=== PATIENT | female | born 1975 | race Two or more races ===

== ENCOUNTER 2024-12-08 10:15 | Outpatient (CLI) | payer OTHER | END 2024-12-08 10:16 | disposition home or self-care (01) | LOC: SONOGRAMA 10:15 | PROVIDERS: ATTEND Pathology Anatomic Pathology & Clinical Pathology | DX: I88.8 Other nonspecific lymphadenitis (principal); N63.31 Unspecified lump in axillary tail of the right breast ==

== ENCOUNTER 2024-12-08 15:37 | Outpatient (CLI) | payer OTHER | END 2024-12-08 15:39 | disposition home or self-care (01) | LOC: MAMO-SONO 15:37 | PROVIDERS: ATTEND General Practice | DX: E03.9 Hypothyroidism, unspecified (principal); E04.2 Nontoxic multinodular goiter; N63.0 Unspecified lump in unspecified breast; C77.3 Secondary and unspecified malignant neoplasm of axilla and upper limb lymph nodes; R59.0 Localized enlarged lymph nodes; L04.2 Acute lymphadenitis of upper limb ==